=== PATIENT | male | born 1975 | race Caucasian/White ===

== ENCOUNTER 2024-07-22 14:10 | Emergency (ER) | payer MEDICAID ==
[~2024-07-22] VITALS: Ht 177.8 cm; Wt 86.4 kg
[2024-07-22 14:12] VITALS: BP 163/92; PULSE 108; RESP 18; TEMP 98.8; O2SAT 99
[2024-07-22] MEDS: LIDOCAINE 1% 10 ML VIAL SQ ONE (15:49)
[2024-07-22] MEDS: CLINDAMYCIN PHOS 150 MG/ML 4 ML VIAL IM ONE (15:49)
[2024-07-22] MEDS ORDERED: CLIN-142 PO (15:58)
== END 2024-07-22 16:42 | disposition home or self-care (01) ==
LOC: EMS 14:12
DX: L02.415 Cutaneous abscess of right lower limb (principal); L03.115 Cellulitis of right lower limb
CPT/HCPCS: 99283; 10060; 96372; J3490 ×2

== ENCOUNTER 2024-10-22 16:22 | Emergency (ER) | payer MEDICAID, OTHER ==
[~2024-10-22] VITALS: Ht 182.9 cm; Wt 84.1 kg
[~2024-10-22 16:22] MED LIST: CLIN-142 PO
[2024-10-22 16:32] VITALS: TEMP 98.5
[2024-10-22 17:08] VITALS: BP 148/85; PULSE 85; RESP 16; O2SAT 97
== END 2024-10-22 17:10 ==
LOC: EMS 16:22
DX: S20.311A Abrasion of right front wall of thorax, initial encounter (principal); S80.812A Abrasion, left lower leg, initial encounter; S80.811A Abrasion, right lower leg, initial encounter; E86.0 Dehydration; F12.90 Cannabis use, unspecified, uncomplicated; Z79.899 Other long term (current) drug therapy; X32.XXXA Exposure to sunlight, initial encounter; Y93.89 Activity, other specified; Y92.89 Other specified places as the place of occurrence of the external cause; Y99.8 Other external cause status
CPT/HCPCS: 99283; Z7502